=== PATIENT | female | born 1950 | race Caucasian/White ===

== ENCOUNTER 2022-12-28 10:57 | Emergency (ER) | payer MEDICARE, SELFPAY ==
[2022-12-28 11:17] VITALS: BP 124/48; PULSE 69; RESP 20; TEMP 36.7; O2SAT 100
--- NOTE | 2022-12-28 11:48 | ED.URI ---
HPI - URI/Sore Throat General Chief Complaint: Upper Respiratory Infection Stated Complaint: cough Source: patient, family and RN notes reviewed History of Present Illness HPI Narrative: 72 yo F presents to urgent care with complaints of a cough x 6 days. Patient reports a worsening cough during the day. Patient denies any fevers, chills chest pain shortness of, congestion, and cold-like symptoms. Patient states this cough is nonproductive. states he has been giving her salt water to drink for this. Some parts of this dictation were generated by voice recognition software and may contain typographical and/or grammatical inaccuracies. Related Data Allergies Allergy/AdvReac Type Severity Reaction Status Date / Time No Known Allergies Allergy Unverified 12/28/22 11:50 Review of Systems Review of Systems: Pertinent positives and pertinent negatives per HPI. PMFSH Comments At the time of my signature, I reviewed and agree with the nursing past medical, surgical, social, and family history. There is no relevant family history pertinent to the patient complaint. Exam Narrative: GENERAL: This is a well-nourished, well-developed patient, in no apparent distress. HEAD: normocephalic, atraumatic. EYES: PERRL. Sclera clear/white. Vision is grossly intact. EARS: External ears normal, auditory canals clear and without drainage, TMs normal without perforation. Hearing grossly intact. NOSE: External nose normal with no obvious nasal discharge, nares without redness, no rhinorrhea. THROAT: Mucous membranes moist, posterior pharynx clear. NECK: Neck supple, non-tender without lymphadenopathy, masses or thyromegaly. CARDIOVASCULAR: Regular rate and rhythm without murmurs, gallops, or rubs. RESPIRATORY: Clear to auscultation. Breath sounds equal bilaterally. No wheezes, rales, or rhonchi. GASTROINTESTINAL: Abdomen soft, non-tender, nondistended. Bowel sounds are active. No hepato-splenomegaly, or palpable masses. No guarding. SKIN: warm, intact with no suspicious lesions or rash, good texture and turgor. NEURO: awake, alert, and oriented to person, place and time. There were no obvious focal neurologic abnormalities. EXTREMITIES: No clubbing, cyanosis, or edema. No joint tenderness, effusion, or edema noted. BACK: Nontender without deformity or crepitance. No flank tenderness. Course Course Level of Care: Express Care Visit Vital Signs Vital signs: Vital Signs Temperature 98.1 F 12/28/22 11:17 Pulse Rate 69 12/28/22 11:17 Respiratory Rate 20 12/28/22 11:17 Blood Pressure 124/48 L 12/28/22 11:17 Pulse Oximetry 100 12/28/22 11:17 Oxygen Delivery Room Air 12/28/22 11:17 Temperature 98.1 F 12/28/22 11:17 Pulse Rate 69 12/28/22 11:17 Respiratory Rate 20 12/28/22 11:17 Blood Pressure 124/48 L 12/28/22 11:17 Pulse Oximetry 100 12/28/22 11:17 Oxygen Delivery Room Air 12/28/22 11:17 Reviewed MDM - URI/Sore Throat MDM Narrative Medical decision making narrative: Take steroids as directed. May use the inhaler every 4-6 hours as needed for coughing. Increase fluids at home. Avoid any and all smoke. May use a humidifier in the bedroom. Increase your Vitamin C. Follow-up with personal physician in 2-5 days. Attempted to obtain CXR but pt was unable to stand for test. Pt was treated with Abx for possible PNA. Pt was encouraged to go to the ER with any new or worsening symptoms. Differential Diagnosis Differential diagnosis: Likely upper respiratory infection, bronchitis and other (Pneumonia) Critical Care Time Critical Care Time Critical Care Time: No Discharge Plan Discharge Clinical Impression: Bronchitis Patient Disposition: Home, Self-Care Condition: Stable Instructions: Antibiotic Form, Acute Bronchitis (ED) Additional Instructions: Take steroids as directed. May use the inhaler every 4-6 hours as needed for coughing. Increase fluids at home. Avoid any and all smo
== END 2022-12-28 12:00 | disposition home or self-care (01) ==
PROVIDERS: Emergency Provider Nurse Practitioner Family; PCP Family Medicine
DX: J40 Bronchitis, not specified as acute or chronic (principal); G35 Multiple sclerosis; Z90.711 Acquired absence of uterus with remaining cervical stump
CPT/HCPCS: 99203; G0463